=== PATIENT | female | born 1945 | race Caucasian/White ===

== ENCOUNTER 2017-09-15 10:25 | Day surgery (SDC) | payer MEDICARE, OTHER ==
[~2017-09-15 10:25] MED LIST: Bupivacaine 0.5% 50 ML MDV ONE; Lidocaine 2% 20 ML MDV ONE
[2017-09-15] MEDS ORDERED: Lactated Ringers 1,000 ML IV SCH (10:30)
[2017-09-15] MEDS ORDERED: Midazolam 1 MG/ML 2 ML SDV ONE (10:43)
[2017-09-15] MEDS ORDERED: Propofol 200 MG/20 ML SDV ONE ×2 (10:43→12:21)
[2017-09-15] MEDS ORDERED: fentaNYL 100 MCG/2 ML SDV ONE (10:43)
[2017-09-15] MEDS ORDERED: ceFAZolin 2 GM in Premix Bag 1 BAG IV ONE (11:00)
[2017-09-15] MEDS ORDERED: Acetaminophen/oxyCODONE 325-5 MG Tab PO ONE (14:01)
[2017-09-15 14:27] VITALS: BP 160/92
--- NOTE | 2017-09-16 00:17 | OR ---
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 PREOPERATIVE DIAGNOSIS: Painful hardware, left ankle. POSTOPERATIVE DIAGNOSIS: Painful hardware, left ankle. PROCEDURE: Hardware removal, left ankle. ANESTHESIA: Local with IV sedation. HEMOSTASIS: Obtained with a thigh tourniquet on the left thigh at 250 mmHg. ESTIMATED BLOOD LOSS: 10 mL. MATERIALS: None. INJECTABLES: 20 mL of 1:1 mixture of lidocaine 2% plain, Marcaine 0.5% plain was injected preoperatively and then 5 mL of Marcaine 0.5% plain were injected intraoperatively. PATHOLOGY: None. CONDITION: Stable. INDICATIONS: Painful hardware, left ankle that was unresponsive to conservative measures. DESCRIPTION OF PROCEDURE: The patient was brought to the operating room, placed on the operating table in supine position. Following IV sedation, anesthesia was obtained with a total of 20 mL of 1:1 mixture of lidocaine 2% plain, Marcaine 0.5% plain. The left foot was scrubbed, prepped, and draped in the usual aseptic manner, and raised to 60 degrees for hemostasis and exsanguinated using Esmarch bandage. Tourniquet was inflated. Foot was lowered to the table. Skin incision was made. Under fluoroscopic guidance, on the medial aspect of the left medial malleolus, incisions were deepened through subcutaneous tissues with care taken to identify and retract all vital neurovascular structures. Following subcutaneous dissection, incision was made into the periosteum on the distal tip of the medial malleolus of the left ankle. The screw head was identified and removed using a screwdriver. Fluoroscopy was taken to show that the screw was removed. The incision was flushed out with copious amounts of sterile saline and subcutaneous closure was done with 3- 0 Vicryl. Skin closure was done with 3-0 nylon in a horizontal mattress configuration and our attention was turned to the lateral malleolus. The incision on the lateral aspect of the left ankle was made in one continuous incision to remove both the lateral aspect of the syndesmotic screw and the lag screw for the fracture of the distal fibula. Both of these screws were identified and removed. Fluoroscopy was used to document removal of the screws. The incision was flushed out with copious amounts of sterile saline. I would like to note that on both the syndesmotic screw and the lag screw in the distal fibula, both of them had bony growth over them. Some of this bone had to be removed with a rongeur in order to visualize the screw head and access it. The lateral incision was flushed out with copious amounts of sterile saline. Subcutaneous closure was done with 3-0 Vicryl, skin closure with 3-0 nylon in a horizontal mattress configuration. Both incisions were dressed with Xeroform, 4x4s, ABD pad, Kerlix, and Coban. The patient was returned to the recovery room with vital signs stable and vascular status intact to both feet. The patient was given instructions to rest, ice, and elevate the left ankle and to ambulate with partial weightbearing with a walker and to wear her Cam boot when ambulating and to return to clinic with Dr. Daniels in one week. The patient was given prescription for pain medication for Tyler 5/325 one tab p.o. q.4-6 h. p.r.n. pain, dispensed #50. The patient was told to go to the emergency room immediately if she has any nausea, vomiting, fever, chills, chest pain, calf pain, or difficulty breathing. Fracisco Daniels DPM /[id number]
== END 2017-09-15 15:00 | disposition home or self-care (01) ==
LOC: JP.SDS 10:25
PROVIDERS: ATTEND Podiatrist Foot & Ankle Surgery
DX: T84.84XA Pain due to internal orthopedic prosthetic devices, implants and grafts, initial encounter (principal); M85.80 Other specified disorders of bone density and structure, unspecified site; L56.8 Other specified acute skin changes due to ultraviolet radiation; Z85.828 Personal history of other malignant neoplasm of skin; Z90.49 Acquired absence of other specified parts of digestive tract
CPT/HCPCS: 20670; 76000; A9270; J0690; J2250; J2704; J3010; J7120

== ENCOUNTER 2020-11-13 08:39 | Day surgery (SDC) | payer MEDICARE, BC ==
[2020-11-13] MEDS ORDERED: Sodium Chloride 0.9% 1,000 ML IV SCH (09:15)
[2020-11-13] MEDS ORDERED: Propofol 200 MG/20 ML SDV ONE ×2 (12:22→13:34)
[2020-11-13] MEDS ORDERED: fentaNYL 100 MCG/2 ML SDV ONE (12:22)
[2020-11-13] MEDS ORDERED: Lidocaine 1% 50 ML MDV ONE (12:52)
[2020-11-13 14:19] VITALS: PULSE 72
[2020-11-13 14:30] VITALS: BP 146/83
--- NOTE | 2020-11-14 09:20 | OR ---
DATE OF PROCEDURE: 11/13/2020 SURGEON: Kane Linn MD PROCEDURE: Colonoscopy. FINDINGS: Diverticulosis, mild, mostly limited to sigmoid colon without evidence of diverticulitis or bleeding. COMPLICATIONS: None. 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 ANESTHESIA: MAC. PREOPERATIVE DIAGNOSIS: Screening colonoscopy. POSTOPERATIVE DIAGNOSIS: Screening colonoscopy. RISKS: Risks, benefits, alternatives, and limitations including, but not limited to infection, bleeding, perforation, false positives and false negatives were explained to the patient who wished to proceed. PROCEDURE IN DETAIL: The patient was placed in left lateral decubitus position. Digital rectal exam was performed without abnormality. Scope was introduced and advanced atraumatically to the ileocecal valve. A photo was taken of this. Scope was brought back to the ascending, transverse, descending colon, and retroflexed. No evidence of old or new blood. No masses. No polyps. Diverticulosis described as above. The prep was marginal, approximately 85% of the luminal surface could be seen due to solid and liquid stool remaining. Greater than 8 minutes was spent removing the scope. The patient tolerated the procedure well. Kane Linn MD /[id number]
== END 2020-11-13 15:00 | disposition home or self-care (01) ==
LOC: JP.SDS 08:39
PROVIDERS: ATTEND Surgery
DX: Z12.11 Encounter for screening for malignant neoplasm of colon (principal); K57.30 Diverticulosis of large intestine without perforation or abscess without bleeding; E66.9 Obesity, unspecified; Z80.0 Family history of malignant neoplasm of digestive organs; Z88.5 Allergy status to narcotic agent; Z68.41 Body mass index [BMI] 40.0-44.9, adult
CPT/HCPCS: G0105; J2704; J3010; J7030

== ENCOUNTER 2022-07-01 05:48 | Inpatient (IN) | payer MEDICARE, BC ==
[2022-07-01] MEDS ORDERED: Lactated Ringers 1,000 ML IV SCH (06:30)
[2022-07-01] MEDS ORDERED: Nozin Nasal Sanitizer NASBOTH ONE (06:30)
[2022-07-01] MEDS ORDERED: Bupivacaine 0.5% 50 ML MDV ONE (07:07)
[2022-07-01] MEDS ORDERED: ceFAZolin 2 GM in Sodium Chloride 0.9% 50 ML IV ONE (07:30)
[2022-07-01] MEDS ORDERED: Midazolam 1 MG/ML 2 ML SDV ONE ×2 (07:52→10:15)
[2022-07-01] MEDS ORDERED: Propofol 200 MG/20 ML SDV ONE ×2 (07:52→08:10)
[2022-07-01] MEDS ORDERED: fentaNYL 100 MCG/2 ML SDV ONE (07:52)
[2022-07-01] MEDS ORDERED: Tranexamic Acid 1,000 MG in Sodium Chloride 0.9% 50 ML IV ONE (09:00)
[2022-07-01] MEDS ORDERED: ePHEDrine 50 MG/ML SDV ONE (09:30)
[2022-07-01] MEDS ORDERED: Morphine 2 MG/ML SYRINGE IVPUSH PRN (10:37)
[2022-07-01] MEDS ORDERED: traMADol 50 MG Tab PO PRN (10:37)
[2022-07-01] MEDS ORDERED: Ondansetron 4 MG Tab.DIS PO PRN (10:37)
[2022-07-01] MEDS ORDERED: Sodium Chloride 0.65% Nasal Spray 45 ML Bottle NASBOTH PRN (11:00)
[2022-07-01] MEDS ORDERED: Oxymetazoline 0.05% Nasal Spray 30 ML Bottle NASBOTH PRN (11:00)
[2022-07-01] MEDS: Ketorolac 15 MG/ML SDV IVPUSH SCH ×2 (12:17→20:15)
[2022-07-01] MEDS: Acetaminophen 325 MG Tab PO SCH ×2 (12:17→17:23)
[2022-07-01] MEDS: oxyCODONE 5 MG Tab PO PRN ×3 (12:26→22:25)
[2022-07-01] MEDS: Pregabalin 50 MG Cap PO SCH ×2 (15:32→20:12)
[2022-07-01] MEDS: Sodium Chloride 0.9% 1,000 ML IV SCH ×2 (15:32→23:25)
[2022-07-01] MEDS: ceFAZolin 1 GM in Premix Bag 1 BAG IV SCH (15:36)
[2022-07-01] MEDS: Nozin Nasal Sanitizer NASBOTH SCH (20:16)
[2022-07-01] MEDS: Docusate Sodium 100 MG Cap PO SCH (20:16)
[2022-07-02] MEDS: Acetaminophen 325 MG Tab PO SCH ×5 (00:01→23:19)
[2022-07-02] MEDS: ceFAZolin 1 GM in Premix Bag 1 BAG IV SCH ×2 (00:01→07:25)
[2022-07-02] MEDS: Ketorolac 15 MG/ML SDV IVPUSH SCH (03:32)
[2022-07-02] MEDS: Levothyroxine 50 MCG Tab PO SCH (07:20)
[2022-07-02] MEDS: oxyCODONE 5 MG Tab PO PRN ×5 (07:25→23:19)
[2022-07-02] MEDS: Sodium Chloride 0.9% 1,000 ML IV SCH (08:07)
[2022-07-02] MEDS: Pregabalin 50 MG Cap PO SCH ×3 (08:11→22:06)
[2022-07-02] MEDS: Nozin Nasal Sanitizer NASBOTH SCH ×2 (08:11→22:05)
[2022-07-02] MEDS: Docusate Sodium 100 MG Cap PO SCH ×2 (08:11→22:06)
[2022-07-03] MEDS: Acetaminophen 325 MG Tab PO SCH ×3 (05:28→18:17)
[2022-07-03] MEDS: oxyCODONE 5 MG Tab PO PRN ×3 (07:37→18:18)
[2022-07-03] MEDS: Levothyroxine 50 MCG Tab PO SCH (07:40)
[2022-07-03] MEDS: Docusate Sodium 100 MG Cap PO SCH ×2 (08:30→21:30)
[2022-07-03] MEDS: Pregabalin 50 MG Cap PO SCH ×3 (08:30→21:32)
[2022-07-03] MEDS: Nozin Nasal Sanitizer NASBOTH SCH ×2 (08:32→21:29)
[2022-07-03] MEDS: Magnesium Hydroxide 400 MG/5 ML Susp 30 ML Cup PO PRN ×2 (11:19→21:29)
[2022-07-04] MEDS: Acetaminophen 325 MG Tab PO SCH ×5 (00:23→23:31)
[2022-07-04] MEDS: oxyCODONE 5 MG Tab PO PRN ×3 (07:22→19:34)
[2022-07-04] MEDS: Levothyroxine 50 MCG Tab PO SCH (07:23)
[2022-07-04] MEDS ORDERED: Bisacodyl 10 MG Supp RECTAL ONE (09:00)
[2022-07-04] MEDS: Nozin Nasal Sanitizer NASBOTH SCH ×2 (09:20→20:12)
[2022-07-04] MEDS: Docusate Sodium 100 MG Cap PO SCH ×2 (09:20→20:13)
[2022-07-04] MEDS: Pregabalin 50 MG Cap PO SCH ×3 (09:25→20:13)
[2022-07-05] MEDS: oxyCODONE 5 MG Tab PO PRN ×2 (03:18→08:40)
[2022-07-05] MEDS: Acetaminophen 325 MG Tab PO SCH (05:27)
[2022-07-05] MEDS: Levothyroxine 50 MCG Tab PO SCH (07:42)
[2022-07-05] MEDS: Docusate Sodium 100 MG Cap PO SCH (08:41)
[2022-07-05] MEDS: Nozin Nasal Sanitizer NASBOTH SCH (08:41)
[2022-07-05] MEDS: Pregabalin 50 MG Cap PO SCH (09:03)
[2022-07-05 10:56] VITALS: BP 148/68; PULSE 87
== END 2022-07-05 11:10 | DRG 470 ==
LOC: JP.SDS 05:48 → JP.MS 10:38 → JP.SDS 07-02 12:20
PROVIDERS: ADMIT Specialist; ATTEND Specialist
PROC: 0SR901A Replacement of Right Hip Joint with Metal Synthetic Substitute, Uncemented, Open Approach (ICD-10-PCS; principal; 2022-07-01)
DX: M16.11 Unilateral primary osteoarthritis, right hip (principal); K21.9 Gastro-esophageal reflux disease without esophagitis; E03.9 Hypothyroidism, unspecified; Z20.822 Contact with and (suspected) exposure to COVID-19; Z88.5 Allergy status to narcotic agent
CPT/HCPCS: 36415; 72170; 72170-26; 86850; 86900; 86901; 97110-GP; 97116-GP; 97161-GP; 97165-GO; 97530-GP; 97535-GO; 97535-GP; A9270-GY; C1713; C1776; J0690; J1885; J2250; J2704; J3010; J3490; J7030; J7120; Q0162; U0002

== ENCOUNTER 2024-04-22 06:39 | Day surgery (SDC) | payer MEDICARE, BC ==
[2024-04-22] MEDS: Sodium Chloride 0.9% 10 ML Syringe FLUSH PRN (07:02)
[2024-04-22] MEDS ORDERED: Midazolam 1 MG/ML 2 ML SDV ONE (07:41)
[2024-04-22 08:21] VITALS: BP 137/80; PULSE 68
== END 2024-04-22 08:30 | disposition home or self-care (01) ==
LOC: JP.SDS 06:39
PROVIDERS: ATTEND Ophthalmology
DX: H25.11 Age-related nuclear cataract, right eye (principal); K21.9 Gastro-esophageal reflux disease without esophagitis; Z88.8 Allergy status to other drugs, medicaments and biological substances
CPT/HCPCS: 66984; J2250; J3490; V2632; 00142-QZ

== ENCOUNTER 2024-05-13 08:13 | Day surgery (SDC) | payer MEDICARE, BC ==
[2024-05-13] MEDS ORDERED: Midazolam 1 MG/ML 2 ML SDV ONE (08:49)
[2024-05-13] MEDS ORDERED: Sodium Chloride 0.9% 10 ML ONE (08:50)
[2024-05-13] MEDS: Sodium Chloride 0.9% 10 ML Syringe FLUSH ONE (09:18)
[2024-05-13 10:16] VITALS: BP 137/87; PULSE 62
== END 2024-05-13 10:50 | disposition home or self-care (01) ==
LOC: JP.SDS 08:13
PROVIDERS: ATTEND Ophthalmology
DX: H25.12 Age-related nuclear cataract, left eye (principal); I10 Essential (primary) hypertension
CPT/HCPCS: 66984; J2250; J3490; V2632